=== PATIENT | female | born 1980 | race Caucasian/White ===

== ENCOUNTER → 2023-05-28 11:10 | Outpatient (REF) | payer BC, SELFPAY ==
[2023-05-28 11:54] LABS: % Basophils 0.6 % (0-2); % Eosinophils 2.1 % (0-6); % Immature Granulocytes 0.4 % (0-0.5); % Lymphocytes 13.6 % (20.5-51.1); % Monocytes 6.6 % (1.7-9.3); % Neutrophils 76.7 % (42.2-75.2); Absolute Basophils 0.1 10^3/uL (0-0.2); Absolute Eosinophils 0.2 10^3/uL (0-0.7); Absolute Lymphocytes 1.4 10^3/uL (1.2-3.4); Absolute Monocytes 0.7 10^3/uL (0.1-0.6); Hematocrit 38.4 % (37.0-47.0); Hemoglobin 12.8 g/dL (12.0-16.0); Mean Corp Hgb Conc. 33.3 g/dL (33.0-37.0); Mean Corpuscular Volume 87.1 fL (81.0-99.0); Mean Platelet Volume 10.5 fL (7.4-10.4); Nucleated Red Blood Cells % 0 %; Platelet Count 265 10^3/uL (130-400); Red Blood Cell Count 4.41 10^6/uL (4.20-5.40); Red Cell Dist. Width 13.1 % (11.5-14.5); White Blood Cell Count 10.5 10^3/uL (4.8-10.8)
[2023-05-28 12:32] LABS: ALT (SGPT) 19 U/L (0-35); AST (SGOT) 18 U/L (14-36); Albumin 4.1 g/dl (3.5-5.0); Alkaline Phosphatase 106 U/L (38-126); Blood Urea Nitrogen 12 mg/dl (7-17); Calcium 9.4 mg/dl (8.4-10.2); Carbon Dioxide 27 mmol/L (22-30); Chloride 100 mmol/L (98-107); Glucose 104 mg/dl (70-99); HDL Cholesterol 61 mg/dl; LDL Cholesterol, Calculated 118 mg/dl; Potassium 3.8 mmol/L (3.5-5.1); Sodium 137 mmol/L (135-145); Total Bilirubin 0.7 mg/dl (0.2-1.3); Total Cholesterol 198 mg/dl (50-199); Triglyceride 97 mg/dl (10-149); Very Low Density Lipoprotein 19 mg/dl (0-30); eGFR > 60.00
== END ==
LOC: REG 11:10
PROVIDERS: ATTENDING PHYSICIAN Internal Medicine Gastroenterology; FAMILY PHYSICIAN Internal Medicine
DX: D84.9 Immunodeficiency, unspecified (principal); Z51.81 Encounter for therapeutic drug level monitoring
CPT/HCPCS: 36415; 80053; 80061; 85025; 86140

== ENCOUNTER 2023-06-02 13:33 | Day surgery (SDC) | payer BC, SELFPAY ==
[2023-06-02] VITALS (10 sets, daily range): BP systolic 85–124; BP diastolic 46–86; BMI 28.1
[2023-06-02] MEDS: NORMOSOL-R 1000 IV (14:00)
[2023-06-02] MEDS: TYLENOL 1000 MG PO (14:11)
== END 2023-06-02 19:40 | disposition home or self-care (01) ==
LOC: SDS 13:33
PROVIDERS: ATTENDING PHYSICIAN Surgery
DX: K61.0 Anal abscess (principal); L02.215 Cutaneous abscess of perineum; B95.5 Unspecified streptococcus as the cause of diseases classified elsewhere
CPT/HCPCS: 46050; 44385; 87070; 87075; 87076; 87077; 87185; 87205; J1335

== ENCOUNTER → 2023-09-07 16:14 | Outpatient (REF) | payer BC, SELFPAY | LOC: RAD 16:14 | PROVIDERS: ATTENDING PHYSICIAN Nurse Practitioner Women's Health | DX: N93.9 Abnormal uterine and vaginal bleeding, unspecified (principal); Z12.31 Encounter for screening mammogram for malignant neoplasm of breast | CPT/HCPCS: 76830; 76856; 77063; 77067 ==

== ENCOUNTER → 2023-09-10 08:33 | Outpatient (REF) | payer BC, SELFPAY | LOC: WDC 08:33 | PROVIDERS: ATTENDING PHYSICIAN Nurse Practitioner Women's Health | DX: R92.8 Other abnormal and inconclusive findings on diagnostic imaging of breast (principal) | CPT/HCPCS: 76642 ==

== ENCOUNTER → 2024-02-04 11:10 | Emergency (ER) | payer BC, SELFPAY ==
[2024-02-04 11:15] VITALS: BP 129/82
--- NOTE | 2024-02-04 12:20 | ED.GENMED ---
History of Present Illness
General
Chief Complaint: Abdominal Symptoms
Source: patient
Exam Limitations: none
Time Seen by Provider: 02/04/24 11:58
Nursing documentation reviewed up to this point in time: agreed with
History of Present Illness
History of Present Illness:
43-year-old female past medical history of Crohn's ulcerative colitis presenting to the emergency department today with concerns of ongoing abdominal pain worsening over the past 2 weeks with some blood in her stool, currently has a J-pouch previous
colectomy. Does follow with pad but also sees colorectal surgery here. Works for the GI clinic here.
Past History
Past History
ED Past Medical History: Other (Ulcerative colitis)
ED Past Surgical History: Bowel resection and Cholecystectomy
Social History
Tobacco: Non-smoker
Alcohol: Occasional
Drug: None
Employment: Employed
Review of Systems
Review of Systems
Allergies reviewed?: Yes
All Other Systems: ROS reviewed and negative except as documented in HPI and ROS
Phy Exam
Physical Exam
Physical Exam:
GENERAL: Alert , in no apparent distress
EYE: pupils equal and reactive
NECK: Supple, no significant adenopathy.
ENT: o/p clr, mmm.
CARDIAC: Regular rate and rhythm .
LUNGS: Clear breath sounds bilaterally, no acute respiratory distress, no wheezes/rales/rhonchi
ABDOMEN: Vague diffuse abdominal pain
NEUROLOGICAL: Alert and oriented, no focal neuro deficits
SKIN: Warm and dry, skin intact.
MUSCULOSKELETAL: No edema, well perfused.
PSYCH: Normal and appropriate interaction.
Course
Orders/Labs/Results
Orders:
Orders
02/04/24 12:13
CT Abd/pel W Iv And Oral Contr Urgent
Comment:
Reason For Exam: diffuse abd pain, jpouch, colectomy
0.9% Sodium Chloride 1000 ml [Nss] 1,000 ml IV BOLUS
Dicyclomine HCl [Bentyl] 20 mg IM NOW STA
Iohexol [Omnipaque] See Protocol PO NOW STA
Ondansetron Injectable [Zofran] 4 mg IV NOW STA
Test Result ONCE
02/04/24 12:40
Complete Blood Count/With Diff Urgent
ESR [Erythrocyte Sed Rate] Urgent
02/04/24 12:41
Urinalysis Reflex To Culture Urgent
Date Specimen was Collected: 02/04/24
Time Specimen was Collected: 12:22
Urine Microscopic Reflex Cult Urgent
Stool Culture Urgent
TL Source: Feces/Stool
Specimen Description:
Date Specimen was Collected: 02/04/24
Time Specimen was Collected: 12:22
Urine Culture Urgent
TL Source: U
Specimen Description:
Date Specimen was Collected: 02/04/24
Time Specimen was Collected: 12:22
02/04/24 13:23
C-Reactive Protein Urgent
Comprehensive Metabolic Panel Urgent
HCG, Serum Qualitative Screen Urgent
Lipase Urgent
02/04/24 16:19
Add On - Microbiology Urgent
Tests Added?: Cdiff stool, calprotectin stool
Abnormal Lab Results
02/04/24 02/04/24 02/04/24
12:40 12:41 13:23
MCH 26.3 L pg
(27.0-31.0)
MCHC 31.9 L g/dL
(33.0-37.0)
MPV 11.1 H fL
(7.4-10.4)
Absolute Monos (auto) 0.7 H 10^3/uL
(0.1-0.6)
Lymphocytes % 18.4 L %
(20.5-51.1)
C-Reactive Protein 31.90 H mg/L
(0.0-10.00)
Ur Occult Blood Reflex Trace A
(Negative)
Urine RBC 3-6 A /HPF
(0-2)
Urine Bacteria (Reflex) Moderate A
(Negative)
02/04/24 12:40
02/04/24 13:23
Vital Signs
Initial and Last Documented VS:
Initial Vital Signs
Temp Pulse Resp BP Pulse Ox
97.8 F 90 18 129/82 98
02/04/24 11:15 02/04/24 11:15 02/04/24 11:15 02/04/24 11:15 02/04/24 11:15
Last Documented Vital Signs
Temp Pulse Resp BP Pulse Ox
97.8 F 17 18 129/82 98
02/04/24 11:15 02/04/24 12:22 02/04/24 11:15 02/04/24 11:15 02/04/24 11:15
MDM/Problems Addressed
MDM/Problems Addressed:
43-year-old female presenting to the emergency department today with concerns of abdominal pain and some intermittent bleeding to the J-pouch. Has history of colectomy due to ulcerative colitis and does have ongoing Crohn's disease. On arrival
vital signs are normal patient does have diffuse abdominal pain. Plan for CT scan for further assessment. Labs unremarkable normal hemoglobin and white count. CRP is elevated otherwise no acute abnormalities. CT scan without significant
intra-abdominal pathology. Some mild pelvic but otherwise no emergent findings. Case discussed with GI recommending stool studies and close GI outpatient follow-up. Return precautions given.
*Critical Care Note
Total Time (30-74mins, 75-104mins- exclusive of procedures): Not Applicable
ED Attending Note
-
Portions of this chart may have been created with voice recognition software.� Occasional wrong word or��sound alike� substitutions may have occurred due to the inherent limitations of voice recognition software.
Discharge Plan
Departure
Patient Disposition: Home (Routine Discharge)
Date of Disposition: 02/04/24
Time of Disposition: 16:25
Patient with high blood pressure during this ER visit?: No
Condition: Good
Covid-19: Not Applicable
Discharge Problem:
Abdominal pain
Instructions: Abdominal Pain
Prescriptions:
No Action
fexofenadine [Khloe] 60 mg Tablet
180 mg PO DAILY
omeprazole [Prilosec] 40 mg Capsule,Delayed Release(Dr/Ec)
40 mg PO DAILY
cholecalciferol (vitamin D3) [Vitamin D3] 10 mcg (400 unit) Capsule
10 mcg PO DAILY
Upabacitiniber
30 mg DAILY
oxycodone 5 mg tablet
5 mg PO Q6H PRN (Reason: Pain) Qty: 20 0RF
ciprofloxacin HCl 500 mg tablet
500 mg PO BID Qty: 14 0RF
metronidazole 500 mg tablet
500 mg PO TID Qty: 21 0RF
Referrals:
Codi Bright MD [Family Provider] -
Activity Restrictions/Additional Instructions:
You came to the emergency department today with concerns of abdominal discomfort. Here you have a reassuring assessment without signs of complication. Please feel closely with your GI doctor. Return to the emergency department for any worsening,
new or concerning symptoms.
Interventions
Interventions:
*Risk Screen - Suicide Last Done: 02/04/24 11:18
*General Assessment Last Done: 02/04/24 11:18
*Neglect/Abuse Screening Last Done: 02/04/24 11:18
ED- Fall Risk Assessment Last Done: 02/04/24 12:22
*ED COVID-19 Vaccine History Last Done: 02/04/24 11:18
TV-Kcjbba-Aklbnnpbou Assessment Last Done: 02/04/24 12:22
Discharge Date and Time
Print Language: [email or web address]
[2024-02-04] MEDS: OMNIPAQUE 50 ML PO (12:49)
[2024-02-04] MEDS: NSS 1000 IV (12:49)
[2024-02-04] MEDS: BENTYL 20 MG IM (12:50)
[2024-02-04] MEDS: ZOFRAN 4 MG IV (12:50)
[2024-02-04 13:06] LABS: Urine Albumin Negative (Neg - Trace); Urine Bilirubin Negative (Negative); Urine Character Clear (Clear); Urine Color Yellow; Urine Glucose Negative (Negative); Urine Ketone Negative (Negative); Urine Leukocyte Negative (Negative); Urine Nitrite Negative (Negative); Urine Occult Blood Trace (Negative); Urine Specific Gravity 1.015 (<1.030); Urine Urobilinogen Negative (Neg - 1+)
[2024-02-04 13:21] LABS: % Basophils 0.7 % (0-2); % Eosinophils 2.2 % (0-6); % Immature Granulocytes 0.4 % (0-0.5); % Lymphocytes 18.4 % (20.5-51.1); % Monocytes 7.6 % (1.7-9.3); % Neutrophils 70.7 % (42.2-75.2); Absolute Basophils 0.1 10^3/uL (0-0.2); Absolute Eosinophils 0.2 10^3/uL (0-0.7); Absolute Lymphocytes 1.7 10^3/uL (1.2-3.4); Absolute Monocytes 0.7 10^3/uL (0.1-0.6); Absolute Neutrophils 6.5 10^3/uL (1.4-6.5); Hematocrit 42.6 % (37.0-47.0); Hemoglobin 13.6 g/dL (12.0-16.0); Mean Corp Hgb Conc. 31.9 g/dL (33.0-37.0); Mean Corpuscular Hgb 26.3 pg (27.0-31.0); Mean Corpuscular Volume 82.2 fL (81.0-99.0); Mean Platelet Volume 11.1 fL (7.4-10.4); Nucleated Red Blood Cells % 0 %; Platelet Count 272 10^3/uL (130-400); Red Blood Cell Count 5.18 10^6/uL (4.20-5.40); Red Cell Dist. Width 14.3 % (11.5-14.5); White Blood Cell Count 9.2 10^3/uL (4.8-10.8)
[2024-02-04 13:41] LABS: Urine Squamous Cell >30 /LPF (Few)
[2024-02-04 13:42] LABS: Urine Bacteria Moderate (Negative)
[2024-02-04 14:05] LABS: HCG, Serum Qualitative Screen Negative
[2024-02-04 14:06] LABS: ALT (SGPT) 17 U/L (0-35); AST (SGOT) 20 U/L (14-36); Albumin 4.4 g/dl (3.5-5.0); Alkaline Phosphatase 91 U/L (38-126); Blood Urea Nitrogen 11 mg/dl (7-17); Calcium 9.5 mg/dl (8.4-10.2); Carbon Dioxide 23 mmol/L (22-30); Chloride 102 mmol/L (98-107); Glucose 91 mg/dl (70-99); Lipase 174 U/L (23-300); Sodium 137 mmol/L (135-145); Total Bilirubin 0.5 mg/dl (0.2-1.3); Total Protein 7.3 g/dl (6.3-8.2); eGFR > 60.00
[2024-02-04 14:52] LABS: Erythrocyte Sed Rate 16 mm/hour (0-20)
[2024-02-04 15:34] VITALS: BP 107/62
[2024-02-04 16:00] VITALS: BP 105/55
== END | disposition home or self-care (01) ==
LOC: EMR 11:10
PROVIDERS: Physician Assistant; EMERGENCY PHYSICIAN Emergency Medicine; FAMILY PHYSICIAN Internal Medicine
DX: R10.9 Unspecified abdominal pain (principal)
CPT/HCPCS: 99285; 96374; 96361; 96372; 74177; 80053; 81003; 81015; 83690; 83993; 84703; 85025; 85652; 86140; 87045; 87046; 87086; 87324; 87427; 87449; Q9967

== ENCOUNTER 2024-03-13 14:27 | Outpatient (RCR) | payer BC, SELFPAY ==
[2024-03-03 11:00] VITALS: BP 111/71
[2024-03-03] MEDS: INJECTAFER 265 MG IV (11:08)
[2024-03-03 11:25] LABS: % Basophils 0.5 % (0-2); % Eosinophils 2.3 % (0-6); % Immature Granulocytes 0.4 % (0-0.5); % Lymphocytes 18.2 % (20.5-51.1); % Monocytes 7.5 % (1.7-9.3); % Neutrophils 71.1 % (42.2-75.2); Absolute Eosinophils 0.2 10^3/uL (0-0.7); Absolute Lymphocytes 1.4 10^3/uL (1.2-3.4); Absolute Monocytes 0.6 10^3/uL (0.1-0.6); Absolute Neutrophils 5.6 10^3/uL (1.4-6.5); Hematocrit 39.3 % (37.0-47.0); Hemoglobin 12.8 g/dL (12.0-16.0); Mean Corp Hgb Conc. 32.6 g/dL (33.0-37.0); Mean Corpuscular Hgb 26.6 pg (27.0-31.0); Mean Corpuscular Volume 81.5 fL (81.0-99.0); Mean Platelet Volume 10.4 fL (7.4-10.4); Nucleated Red Blood Cells % 0 %; Platelet Count 228 10^3/uL (130-400); Red Blood Cell Count 4.82 10^6/uL (4.20-5.40); Red Cell Dist. Width 15.7 % (11.5-14.5); White Blood Cell Count 7.9 10^3/uL (4.8-10.8)
[2024-03-03 11:43] LABS: Iron 48 ug/dl (37-170)
[2024-03-03 11:45] VITALS: BP 102/64
[2024-03-03 11:52] LABS: Percent Saturation 10 % (20-50); Total Iron Binding Capacity 479 ug/dl (265-497)
[2024-03-03 12:05] LABS: Vitamin D, 25-OH*** > 126 ng/mL (30-80)
[2024-03-03 12:23] LABS: Ferritin 9.6 ng/ml (6.24-137)
[2024-03-13] MEDS: INJECTAFER 265 MG IV (14:54)
[2024-03-13 15:03] VITALS: BP 106/67
[2024-03-13 15:04] LABS: % Basophils 0.2 % (0-2); % Eosinophils 1.6 % (0-6); % Immature Granulocytes 0.5 % (0-0.5); % Lymphocytes 21.1 % (20.5-51.1); % Monocytes 8.1 % (1.7-9.3); % Neutrophils 68.5 % (42.2-75.2); Absolute Eosinophils 0.1 10^3/uL (0-0.7); Absolute Lymphocytes 1.7 10^3/uL (1.2-3.4); Absolute Monocytes 0.7 10^3/uL (0.1-0.6); Absolute Neutrophils 5.7 10^3/uL (1.4-6.5); Hemoglobin 12.9 g/dL (12.0-16.0); Mean Corp Hgb Conc. 33.1 g/dL (33.0-37.0); Mean Corpuscular Hgb 27.4 pg (27.0-31.0); Mean Platelet Volume 9.9 fL (7.4-10.4); Platelet Count 267 10^3/uL (130-400); Red Cell Dist. Width 15.8 % (11.5-14.5); White Blood Cell Count 8.3 10^3/uL (4.8-10.8)
[2024-03-13 15:34] LABS: Phosphorus 2.1 mg/dl (2.5-4.5)
[2024-03-13 16:00] VITALS: BP 109/67
== END 2024-03-14 08:59 | disposition home or self-care (01) ==
LOC: OID 14:27
PROVIDERS: ATTENDING PHYSICIAN Internal Medicine Hematology & Oncology; FAMILY PHYSICIAN Internal Medicine
DX: E61.1 Iron deficiency (principal); K50.90 Crohn's disease, unspecified, without complications; R53.83 Other fatigue
CPT/HCPCS: 82306; 82728; 83540; 83550; 84100; 85025; 96365; J1439

== ENCOUNTER 2024-05-17 06:11 | Inpatient (IN) | payer BC, SELFPAY ==
[2024-05-05 06:58] VITALS: BMI 34.4
[2024-05-05 08:12] LABS: Hematocrit 43.9 % (37.0-47.0); Hemoglobin 14.7 g/dL (12.0-16.0); Mean Corp Hgb Conc. 33.5 g/dL (33.0-37.0); Mean Corpuscular Hgb 29.6 pg (27.0-31.0); Mean Corpuscular Volume 88.3 fL (81.0-99.0); Mean Platelet Volume 10.3 fL (7.4-10.4); Platelet Count 242 10^3/uL (130-400); Red Blood Cell Count 4.97 10^6/uL (4.20-5.40); Red Cell Dist. Width 15.5 % (11.5-14.5); White Blood Cell Count 7.6 10^3/uL (4.8-10.8)
[2024-05-05 08:15] LABS: ALT (SGPT) 25 U/L (0-35); AST (SGOT) 22 U/L (14-36); Albumin 4.8 g/dl (3.5-5.0); Alkaline Phosphatase 90 U/L (38-126); Blood Urea Nitrogen 12 mg/dl (7-17); Calcium 9.3 mg/dl (8.4-10.2); Carbon Dioxide 28 mmol/L (22-30); Chloride 99 mmol/L (98-107); Estimated Creatinine Clearance > 125 ml/min; Glucose 98 mg/dl (70-99); Potassium 4.1 mmol/L (3.5-5.1); Sodium 137 mmol/L (135-145); eGFR > 60.00
[2024-05-05 08:17] LABS: INR 0.95; PT 12.9 Sec (11.4-14.6)
[2024-05-05 08:19] LABS: APTT 29.6 Sec (23.4-35.0)
[2024-05-05 12:45] LABS: Glycohemoglobin (HgbA1c) 5.3 % (4.0-5.6)
[2024-05-17] VITALS (18 sets, daily range): BP systolic 30–115; BP diastolic 54–72; BMI 34.4
[2024-05-17] MEDS: HEPARIN 5000 UNITS SC (06:48)
[2024-05-17] MEDS: TYLENOL 1000 MG PO (06:48)
[2024-05-17] MEDS: ENTEREG 12 MG PO (06:48)
[2024-05-17] MEDS: NORMOSOL-R/PLASMALYTE-A 1000 IV ×2 (06:49→16:54)
[2024-05-17] MEDS: TRANSDERM-SCOP 1 PATCH TRANSDERM (07:06)
--- NOTE | 2024-05-17 13:26 | W.IMMPOSTOP ---
Surgical Immed Post Op Note
-
Primary Surgeon: Yasir Torres MD
Assistants: CARINA Villagomez, Casimiro Mojica MD, PGY1 and RAFFAELE Salguero
Pre-op Diagnosis: J-pouch Crohn's disease
Post-op Diagnosis: Same
Procedure Performed: Cystoscopy with bilateral ureteral catheters/ICG by Dr. Luevano
Robotic J-pouch excision with permanent ileostomy
Anesthesia Type: GET
Specimen / Cultures: J-pouch and anus
Estimated Blood Loss: 100cc
Complications: None
Operative Findings: Chronic scarring of the J-pouch
Right ureteral stent removed intact
#19 Colt drain in the pelvis
Patient's family updated in the waiting room
[2024-05-17] MEDS: COMPAZINE 5 MG IV (14:48)
[2024-05-17] MEDS: DILAUDID 0.25 MG IV (14:59)
[2024-05-17] MEDS: TORADOL 15 MG IV ×2 (15:00→20:42)
--- NOTE | 2024-05-17 16:21 | PTCARENOTE ---
Pt arrived 2 south from PACU s/p robotic J pouch removal, ileostomy creation. Pt AAOx3, drowsy but arousal to verbal, Lemus in place draining brown/yellow colored urine, stent in place, L side SARAI drain in place, perianal pad with small amount of
drainage, 3 lap sites C/D/I RUY, on 2L NC satting 96%. Pt oriented to call mora and room, bed locked and in lowest position, call mora within reach.
[2024-05-17] MEDS: TYLENOL PO (16:51)
[2024-05-17 17:42] LABS: Glucose - Point of Care 122 mg/dl (70-99)
[2024-05-17] MEDS: TYLENOL 650 MG PO (20:41)
[2024-05-18] MEDS: NORMOSOL-R/PLASMALYTE-A 1000 IV ×3 (01:54→19:12)
[2024-05-18] MEDS: TORADOL 15 MG IV ×4 (01:55→19:13)
[2024-05-18] MEDS: TYLENOL 650 MG PO ×5 (01:55→19:12)
[2024-05-18 03:10] VITALS: BP 117/58
[2024-05-18] MEDS: TYLENOL PO (03:54)
[2024-05-18 06:00] VITALS: BMI 34.4
[2024-05-18 06:47] LABS: % Basophils 0.4 % (0-2); % Eosinophils 0.9 % (0-6); % Immature Granulocytes 0.5 % (0-0.5); % Lymphocytes 6.7 % (20.5-51.1); % Monocytes 10.9 % (1.7-9.3); % Neutrophils 80.6 % (42.2-75.2); Absolute Basophils 0.1 10^3/uL (0-0.2); Absolute Eosinophils 0.1 10^3/uL (0-0.7); Absolute Immature Granulocytes 0.1 10^3/uL (0-0.05); Absolute Lymphocytes 0.8 10^3/uL (1.2-3.4); Absolute Monocytes 1.4 10^3/uL (0.1-0.6); Absolute Neutrophils 10.2 10^3/uL (1.4-6.5); Hematocrit 40.3 % (37.0-47.0); Hemoglobin 13.3 g/dL (12.0-16.0); Mean Corpuscular Hgb 29.6 pg (27.0-31.0); Mean Corpuscular Volume 89.8 fL (81.0-99.0); Mean Platelet Volume 10.4 fL (7.4-10.4); Nucleated Red Blood Cells % 0 %; Platelet Count 207 10^3/uL (130-400); Red Blood Cell Count 4.49 10^6/uL (4.20-5.40); Red Cell Dist. Width 14.7 % (11.5-14.5); White Blood Cell Count 12.6 10^3/uL (4.8-10.8)
[2024-05-18 06:59] LABS: Blood Urea Nitrogen 9 mg/dl (7-17); Calcium 7.7 mg/dl (8.4-10.2); Carbon Dioxide 23 mmol/L (22-30); Chloride 105 mmol/L (98-107); Estimated Creatinine Clearance > 125 ml/min; Glucose 103 mg/dl (70-99); Potassium 3.8 mmol/L (3.5-5.1); Sodium 134 mmol/L (135-145); eGFR > 60.00
[2024-05-18 07:47] VITALS: BP 98/58
[2024-05-18] MEDS: PROTONIX 40 MG PO (08:18)
[2024-05-18] MEDS: ENTEREG 12 MG PO ×2 (08:19→19:13)
--- NOTE | 2024-05-18 11:02 | CM ---
Reviewed the chart notes and spoke with the patient at the bedside. The patient resides with her parents in a two story home with approximately five steps to enter. The patient reports no DME or SNF in the past, but has had [facility] in past.
The patient confirmed her pharmacy of choice is the [facility]. CM continues to be available to patient/family and is monitoring medical plan for needs at discharge.
Plan: Discharge to home when medically stable. No needs anticipated at this time.
[2024-05-18 12:29] VITALS: BP 104/61
--- NOTE | 2024-05-18 13:05 | W.PN.CRS1 ---
Today's Communication / Plan
-
Clears
DC Lemus
Lovenox
Wound care
Assessment/Plan
-
POD#1 Robotic J-pouch excision with permanent ileostomy
WBC: 12.6, Hgb 13.3, vitals normal
-Advance diet to clear liquids
-Discontinue Lemus. Stent # 2 removed at bedside.
-Lovenox started for DVT prophylaxis. Teds and SCDs in place.
-Maintain SARAI drain until discharge
-Sitz bath's as needed
-Pain control: Tylenol and Toradol standing, Dilaudid as needed, added oxycodone as needed
-Wound consult for ileostomy teaching
-OR pathology pending
-Out of bed as tolerated
Subjective Data
Procedure
05/17- Cystoscopy with bilateral ureteral catheters/ICG by Dr. Luevano, robotic J-pouch excision with permanent ileostomy
Subjective Data
Date of Service: May 18, 2024
Patient states she is feeling well. She is not that hungry. She had some nausea yesterday but this is resolved. She denies any vomiting. Her pain is controlled. She has some function in her ileostomy.
Objective Data
-
Vital Signs
Temp Pulse Resp BP Pulse Ox
98.0 F 64 16 104/61 100
05/18/24 12:29 05/18/24 12:29 05/18/24 12:29 05/18/24 12:29 05/18/24 12:29
Intake & Output
05/17/24 05/18/24 05/19/24
06:59 06:59 06:59
Intake Total 1740 / 1740
Output Total 1335 / 1335
Balance 405 / 405
Intake:
Oral fluids 240 / 240
IV fluids (Total) 1500 / 1500
Normosol 300 / 300
Output:
Drain Output (Total) 110 / 110
Left Abdomen Michael-Mcnally 110 / 110
Urine, Lemus 1225 / 1225
Lab Results
05/18/24 05:48
05/18/24 05:48
Physical Exam
-
General: No Acute Distress and AOx3
Abdomen: Soft, Non Distended, Non Tender and Other (Ileostomy warm and pink with liquid stool output)
Skin: Warm and Dry
[2024-05-18 15:51] VITALS: BP 110/57
[2024-05-18] MEDS: LOVENOX 40 MG SC (17:16)
[2024-05-18 23:25] VITALS: BP 94/48
[2024-05-19] MEDS: TYLENOL PO (01:04)
[2024-05-19] MEDS: TYLENOL 650 MG PO ×5 (02:36→21:51)
[2024-05-19] MEDS: TORADOL 15 MG IV ×4 (02:36→21:51)
[2024-05-19 02:45] VITALS: BP 96/45
[2024-05-19 06:00] VITALS: BMI 34.8
[2024-05-19 08:10] VITALS: BP 92/56
[2024-05-19] MEDS: ENTEREG 12 MG PO ×2 (08:36→20:16)
[2024-05-19] MEDS: PROTONIX 40 MG PO (08:36)
--- NOTE | 2024-05-19 10:17 | WOUNDNOTE ---
WOC RN NOTE: Reviewed chart and met with patient. Patient denies need for ostomy teaching for new ileostomy as she has had ostomy in the past. Stoma is pink and budded. Patient agreeable to secure start kit order to be send to home. Patient given 2
weeks of ostomy supplies and will have VN. Patient understands she can reach out to WOC RN's for any issues or concerns. Plan is for discharge tomorrow.
--- NOTE | 2024-05-19 10:38 | W.PN.CRS1 ---
Today's Communication / Plan
-
full liquids
Assessment/Plan
-
POD#2 Robotic J-pouch excision with permanent ileostomy
no labs, vitals normal
-Advance diet to full liquids. D/C IVFs when tolerating po.
-Voiding post wang removal
-Lovenox, TEDS/SCDS in place for DVT prophylaxis.
-Maintain SARAI drain until discharge
-Sitz bath's as needed
-Pain control: Tylenol and Toradol standing, Dilaudid as needed, added oxycodone as needed
-Wound consult for ileostomy teaching
-OR pathology pending
-Out of bed as tolerated
Subjective Data
Procedure
05/17- Cystoscopy with bilateral ureteral catheters/ICG by Dr. Luevano, robotic J-pouch excision with permanent ileostomy
Subjective Data
Date of Service: May 19, 2024
Patient states she feels 'okay'. She feels some mild rectal pain. She denies nausea or vomiting. She tolerated clears.
Objective Data
-
Vital Signs
Temp Pulse Resp BP Pulse Ox
98.4 F 68 18 92/56 97
05/19/24 08:10 05/19/24 08:10 05/19/24 08:10 05/19/24 08:10 05/19/24 08:10
Intake & Output
05/18/24 05/19/24 05/20/24
06:59 06:59 06:59
Intake Total 1740 / 1740 4080 / 4080
Output Total 1335 / 1335 1959 / 1959
Balance 405 / 405 2119 / 2120
Intake:
Oral fluids 240 / 240 1680 / 1680
IV fluids (Total) 1500 / 1500 2400 / 2400
Normosol 300 / 300
Output:
Liquid stool amount 300 / 300
Ileostomy 300 / 300
Drain Output (Total) 110 / 110 110 / 110
Left Abdomen Michael-Mcnally 110 / 110 110 / 110
Urine, Wang 1225 / 1225 450 / 450
Urine, Voided 1100 / 1100
Other:
Number of approximated MODERATE 3
amounts of urine
Lab Results
05/18/24 05:48
05/18/24 05:48
Physical Exam
-
General: No Acute Distress and AOx3
Abdomen: Soft, Non Distended, Non Tender and Other (ileostomy warm and pink with function. SARAI serosanginous. )
Skin: Warm and Dry
[2024-05-19 15:33] VITALS: BP 95/62
[2024-05-19] MEDS: LOVENOX 40 MG SC (18:13)
[2024-05-19 23:44] VITALS: BP 92/44
[2024-05-20] MEDS: TYLENOL PO (00:24)
[2024-05-20] MEDS: TYLENOL 650 MG PO ×2 (02:57→08:46)
[2024-05-20] MEDS: TORADOL 15 MG IV (02:57)
[2024-05-20 06:00] VITALS: BMI 34.4
[2024-05-20 07:35] VITALS: BP 98/56
[2024-05-20] MEDS: TORADOL IV ×2 (08:46→09:06)
[2024-05-20] MEDS: PROTONIX 40 MG PO (08:46)
[2024-05-20] MEDS: ENTEREG 12 MG PO (08:46)
--- NOTE | 2024-05-20 11:58 | W.PN.CRS1 ---
Today's Communication / Plan
-
Dispo planning
Assessment/Plan
-
44 yo female with a h/o Crohn's POD#3 Robotic J-pouch excision with permanent ileostomy
AFVSS
Tolerating diet with good outputs from stoma
Comfortable with stoma care
Drain is out
-LRD
-Lovenox, TEDS/SCDS in place for DVT prophylaxis.
-Sitz bath's as needed
-Pain control: Tylenol and Toradol standing, Dilaudid as needed, added oxycodone as needed
-Wound consult for ileostomy teaching, VNA arranged
-OR pathology pending
-Out of bed as tolerated
discharge to home
Subjective Data
Procedure
05/17- Cystoscopy with bilateral ureteral catheters/ICG by Dr. Luevano, robotic J-pouch excision with permanent ileostomy
Subjective Data
Date of Service: May 20, 2024
Patient seen and examined at bedside with Dr Torres. Everette n/v. Tolerating diet. Passing stools/flatus via stoma. Pain is minimal.
Objective Data
-
Vital Signs
Temp Pulse Resp BP Pulse Ox
98.0 F 66 16 98/56 98
05/20/24 07:35 05/20/24 07:35 05/20/24 07:35 05/20/24 07:35 05/20/24 07:35
Intake & Output
05/19/24 05/20/24 05/21/24
06:59 06:59 06:59
Intake Total 4080 / 4080 1200 / 1200
Output Total 1959 / 1959 1350 / 1350
Balance 2119 / 2119 -150 / -150
Intake:
Oral fluids 1680 / 1680 1200 / 1200
IV fluids (Total) 2400 / 2400
Output:
Liquid stool amount 300 / 300 1350 / 1350
Ileostomy 300 / 300 1350 / 1350
Drain Output (Total) 110 / 110
Left Abdomen Michael-Mcnally 110 / 110
Urine, Lemus 450 / 450
Urine, Voided 1100 / 1100
Other:
Number of approximated MODERATE 3 3
amounts of urine
Lab Results
05/18/24 05:48
05/18/24 05:48
Physical Exam
-
General: No Acute Distress and AOx3
Abdomen: Soft, Non Distended, Non Tender and Other (ileostomy warm and pink with function)
Skin: Warm and Dry
Incision: Clear, Dry, Intact and Other (Prior drain site, intact, no drainage)
--- NOTE | 2024-05-20 12:13 | CM ---
Pt for discharge today
[facility] to follow
Has ride home
Plan - home with [facility]
f - [phone]
[2024-05-20 13:30] VITALS: BP 107/65
--- NOTE | 2024-05-20 14:21 | W.DCSUMMARY ---
Discharge Summary
Discharge Data
Date of Admission: 05/17/24
Date of Discharge: 05/20/24
-
Pending Results: No
Hospital Course
Ms Spann is a 44 yo female with a history of Crohn's with prior J-pouch who presented for robotic j-pouch excision and creation of end ileostomy. She tolerated the procedure well and diet was able to be advanced and well tolerated post
operatively. She was evaluated by the stoma nurse with ostomy supplies provided and VNA arranged for her return to home. A SARAI drain was placed intraoperatively and removed prior to discharge. She was discharged to home for outpatient follow up in
the coming weeks for perianal suture removal and surgical follow up. Pathology of pouch and anus pending at time of discharge.
Discharge Plan
-
Patient Disposition: Home (Routine Discharge)
Discharge Diagnosis/Procedures: Robotic J-pouch excision with permanent ileostomy
Condition: Good
Diet: Low Residue
Activity: No strenuous activity
Additional Activity: No lifting over 10lbs (gallon of milk)
Driving Restrictions: No driving for 1 week
Bathing Restrictions: OK to Shower
Other Services: VN
Wound Care: The drain site will heal on it's own in 3 to 5 days. Okay to leave open to air once sealed.
Activity Restrictions/Additional Instructions:
Ostomy supplies have been provided to you by the wound care team, please call the wound center if more supplies are needed.
Visiting nurses through [facility] have been arranged and can assist you with obtaining supplies
Sutures to be removed as an outpatient in 2 weeks. Ok to shower and rinse area gently with soap and water. Ok for sitz baths as needed for irritation.
Instructions: Low-fiber diet
Referrals:
Vance Torres MD [Active] - in two weeks
Richar Bravo DO [Family Provider] -
Prescriptions:
New
acetaminophen [acetaminophen] 325 mg tablet
650 mg PO Q4HPRN PRN (Reason: mild pain) Qty: 1 0RF
ibuprofen 200 mg tablet
400 - 600 mg PO Q6HPRN PRN (Reason: moderate pain) Qty: 1 0RF
oxycodone 5 mg tablet
5 mg PO Q4HPRN PRN (Reason: breakthrough/severe pain) Qty: 15 0RF
Continued
fexofenadine 60 mg Tablet
180 mg PO DAILY PRN (Reason: allergies)
omeprazole 40 mg Capsule,Delayed Release(Dr/Ec)
40 mg PO DAILY
cholecalciferol (vitamin D3) [Vitamin D3] 10 mcg (400 unit) Capsule
10 mcg PO DAILY
cm-sn-blqo-FA-Ca carb-vit K 18 mg iron-400 mcg-500 mg Tablet
1 tab PO DAILY
magnesium 200 mg Tablet
200 mg PO HS
Discontinued
metronidazole 500 mg Tablet
500 mg PO DIRECTED
Patient Comments:
2pm, 3pm, 10pm day before
neomycin 500 mg Tablet
500 mg PO DIRECTED
Patient Comments:
2pm, 3pm, 10pm day before
Discharge Orders:
Discharge Patient (As Directed); Ordered 05/20/24
Ordered By: Micaela Gray
Discharge Date and Time
Discharge Date/Time: 05/20/24 13:46
Print Language: YORUBA
== END 2024-05-20 13:46 | disposition home health service (06) | DRG 330 ==
LOC: 2 SOUTH 06:11
PROVIDERS: ADMITTING PHYSICIAN Surgery; FAMILY PHYSICIAN Family Medicine
PROC: 0DBQ4ZZ Excision of Anus, Percutaneous Endoscopic Approach (ICD-10-PCS; 2024-05-17)
PROC: 8E0W4CZ Robotic Assisted Procedure of Trunk Region, Percutaneous Endoscopic Approach (ICD-10-PCS; 2024-05-17)
PROC: 0D1B4Z4 Bypass Ileum to Cutaneous, Percutaneous Endoscopic Approach (ICD-10-PCS; 2024-05-17)
PROC: 0DBP4ZZ Excision of Rectum, Percutaneous Endoscopic Approach (ICD-10-PCS; 2024-05-17)
DX: K50.90 Crohn's disease, unspecified, without complications (principal); K91.850 Pouchitis; N83.202 Unspecified ovarian cyst, left side; N83.201 Unspecified ovarian cyst, right side; N73.6 Female pelvic peritoneal adhesions (postinfective); Y83.8 Other surgical procedures as the cause of abnormal reaction of the patient, or of later complication, without mention of misadventure at the time of the procedure
CPT/HCPCS: 88307; 36415; 80048; 80053; 82962; 83036; 85025; 85027; 85610; 85730; 86850; 86900; 86901; A4300; J1335

== ENCOUNTER → 2024-06-09 13:20 | Outpatient (REF) | payer BC, SELFPAY | LOC: HWRAD 13:20 | PROVIDERS: ATTENDING PHYSICIAN Nurse Practitioner Women's Health; FAMILY PHYSICIAN Internal Medicine | DX: E28.2 Polycystic ovarian syndrome (principal) | CPT/HCPCS: 76830; 76856 ==

== ENCOUNTER → 2024-07-10 18:18 | Outpatient (REF) | payer BC, SELFPAY | LOC: PAVMRI 18:18 | PROVIDERS: ATTENDING PHYSICIAN Nurse Practitioner Women's Health; FAMILY PHYSICIAN Nurse Practitioner Family | DX: N83.8 Other noninflammatory disorders of ovary, fallopian tube and broad ligament (principal) | CPT/HCPCS: 72197; A9575 ==

== ENCOUNTER → 2024-08-01 07:23 | Outpatient (REF) | payer BC, SELFPAY ==
[2024-08-01 08:37] LABS: % Basophils 0.6 % (0-2); % Immature Granulocytes 0.4 % (0-0.5); % Lymphocytes 19.7 % (20.5-51.1); % Monocytes 7.1 % (1.7-9.3); % Neutrophils 70.2 % (42.2-75.2); Absolute Basophils 0.1 10^3/uL (0-0.2); Absolute Eosinophils 0.2 10^3/uL (0-0.7); Absolute Lymphocytes 1.6 10^3/uL (1.2-3.4); Absolute Monocytes 0.6 10^3/uL (0.1-0.6); Absolute Neutrophils 5.7 10^3/uL (1.4-6.5); Hematocrit 43.4 % (37.0-47.0); Hemoglobin 14.4 g/dL (12.0-16.0); Mean Corp Hgb Conc. 33.2 g/dL (33.0-37.0); Mean Corpuscular Hgb 30.6 pg (27.0-31.0); Mean Corpuscular Volume 92.3 fL (81.0-99.0); Mean Platelet Volume 11.2 fL (7.4-10.4); Nucleated Red Blood Cells % 0 %; Platelet Count 231 10^3/uL (130-400); Red Cell Dist. Width 12.4 % (11.5-14.5); White Blood Cell Count 8.2 10^3/uL (4.8-10.8)
[2024-08-01 09:08] LABS: ALT (SGPT) 19 U/L (0-35); AST (SGOT) 16 U/L (14-36); Albumin 4.3 g/dl (3.5-5.0); Alkaline Phosphatase 69 U/L (38-126); Blood Urea Nitrogen 14 mg/dl (7-17); Calcium 9.5 mg/dl (8.4-10.2); Carbon Dioxide 26 mmol/L (22-30); Chloride 109 mmol/L (98-107); Glucose 101 mg/dl (70-99); LDH 159 U/L (120-246); Potassium 4.5 mmol/L (3.5-5.1); Sodium 141 mmol/L (135-145); Total Bilirubin 0.6 mg/dl (0.2-1.3); Total Protein 7.1 g/dl (6.3-8.2); eGFR > 60.00
[2024-08-01 09:22] LABS: Beta HCG Quantitative < 2.39 mIU/ml; FSH 3.8 mIU/ml
[2024-08-01 09:36] LABS: CEA 1.01 ng/ml
[2024-08-01 10:42] LABS: CA 125 12.5 U/mL (0-35)
[2024-08-01 10:46] LABS: AFP Male/Tumor Marker 2.12 ng/ml
== END ==
LOC: REG 07:23
PROVIDERS: ATTENDING PHYSICIAN Obstetrics & Gynecology Gynecologic Oncology; FAMILY PHYSICIAN Internal Medicine
DX: E61.1 Iron deficiency (principal); R19.03 Right lower quadrant abdominal swelling, mass and lump; Z93.2 Ileostomy status
CPT/HCPCS: 36415; 80053; 82105; 82378; 83001; 83615; 84702; 85025; 86304

== ENCOUNTER → 2024-09-20 11:05 | Outpatient (REF) | payer BC, SELFPAY | LOC: MRI 3T 11:05 | PROVIDERS: ATTENDING PHYSICIAN Obstetrics & Gynecology Gynecologic Oncology; FAMILY PHYSICIAN Internal Medicine | DX: E61.1 Iron deficiency (principal); R19.03 Right lower quadrant abdominal swelling, mass and lump; Z93.2 Ileostomy status | CPT/HCPCS: 72197; A9575 ==

== ENCOUNTER 2025-02-08 07:31 | Emergency (ER) | payer BC, SELFPAY ==
[2025-02-08 07:41] VITALS: BP 115/74
[2025-02-08 07:52] VITALS: BMI 32.5
[2025-02-08 08:09] VITALS: BP 106/61
[2025-02-08 08:11] VITALS: BP 106/61
[2025-02-08 08:13] LABS: Hematocrit 42.5 % (37.0-47.0); Hemoglobin 14.3 g/dL (12.0-16.0); Mean Corp Hgb Conc. 33.6 g/dL (33.0-37.0); Mean Corpuscular Volume 89.3 fL (81.0-99.0); Nucleated Red Blood Cells % 0 %; Platelet Count 222 10^3/uL (130-400); Red Cell Dist. Width 12.3 % (11.5-14.5)
[2025-02-08 08:17] LABS: Urine Character Clear (Clear)
--- NOTE | 2025-02-08 08:18 | ED.GENMED ---
History of Present Illness
<Whitney Mcclendon PA-C - Last Filed: 02/08/25 13:01>
General
Chief Complaint: Abdominal Pain
Source: patient
Exam Limitations: none
Time Seen by Provider: 02/08/25 08:07
History of Present Illness
History of Present Illness:
44yoF with a history of Crohn's disease currently in remission, lupus not currently on medication, and PCOS presenting for evaluation of abdominal pain. Patient reports waking up in the middle of the night around 2:30 AM with abdominal pain. Pain
is primarily located in the upper abdomen. She also is experiencing nausea and has vomited about 5x. She reports decreased output from her ileostomy since her symptoms began. She typically has a large amount of liquid output but is now only
passing gas. Patient is concerned that she may have a bowel obstruction. She denies any fevers, chest pain, shortness of breath, hematemesis, urinary symptoms. Patient underwent robotic J-pouch excision with permanent ileostomy in April of
this year with Dr. Torres.
Past History
<Whitney Mcclendon PA-C - Last Filed: 02/08/25 13:01>
Past History
ED Past Medical History: Other (Ulcerative colitis)
ED Past Surgical History: Bowel resection and Cholecystectomy
Social History
Tobacco: Non-smoker
Alcohol: Occasional
Drug: None
Employment: Employed
Phy Exam
<Whitney Mcclendon PA-C - Last Filed: 02/08/25 13:01>
General Physical Exam
General Presentation: well appearing and no apparent distress
General Skin: warm and dry
General Habitus: normal
General Mental: alert
ENT Exam
ENT Exam: normocephalic
Cardiovascular Exam
Cardiovascular Exam: regular rate/rhythm
Pulmonary Exam
Pulmonary Exam: lungs clear, no respiratory distress, no rales, no crackles, no rhonchi and no wheezing
Gastrointestinal Exam
Gastrointestinal Exam: normal bowel sounds, soft, non distended, tender and other (+Tenderness to epigastric, RUQ, RLQ, and suprapubic regions. Abdomen soft, non-distended. Normoactive bowel sounds. No rebound or guarding.)
External Findings: ileostomy (no output in bag)
Neurological Exam
Neurological Exam: alert
Jerome Coma Scale
Eye Opening: Spontaneous
Verbal Response: Oriented
Motor Response: Obeys Commands
GCS Total Score: 15
Skin Exam
Skin Exam: normal color and warm/dry
Psychiatric Exam
Psychiatric Exam: normal mood/affect
Course
Bernardalt;Whitney Mcclendon PA-C - Last Filed: 02/08/25 13:01>
Orders/Labs/Results
Orders:
Orders
02/08/25 08:01
Test Result ONCE
02/08/25 08:02
CMP [Comprehensive Metabolic Panel] Urgent
Complete Blood Count/With Diff Urgent
HCG, Serum Qualitative Screen Urgent
Lipase Urgent
02/08/25 08:03
Urinalysis Reflex To Culture Urgent
Date Specimen was Collected: 02/08/25
Time Specimen was Collected: 08:02
Urine Microscopic Reflex Cult Urgent
02/08/25 08:17
CT Abd/pel W Iv And Oral Contr Urgent
Comment:
Reason For Exam: abd pain, vomiting, ileostomy status
0.9% Sodium Chloride 1000 ml [Nss] 1,000 ml IV BOLUS
Iohexol [Omnipaque] See Protocol PO NOW STA
Ondansetron Injectable [Zofran] 4 mg IV NOW STA
02/08/25 10:08
Acetaminophen [Tylenol] 1,000 mg PO NOW STA
Abnormal Lab Results
02/08/25 02/08/25
08:02 08:03
MPV 10.6 H fL
(7.4-10.4)
Absolute Neuts (auto) 8.4 H 10^3/uL
(1.4-6.5)
Absolute Monos (auto) 0.7 H 10^3/uL
(0.1-0.6)
Neutrophils % 79.4 H %
(42.2-75.2)
Lymphocytes % 12.1 L %
(20.5-51.1)
Glucose 104 H mg/dl
(70-99)
Ur Occult Blood Reflex 1+ A
(Negative)
Urine Bacteria (Reflex) Few A
(Negative)
Urine Albumin (Reflex) 1+ A
(Neg - Trace)
02/08/25 08:02
02/08/25 08:02
Vital Signs
Initial and Last Documented VS:
Initial Vital Signs
Temp Pulse Resp BP Pulse Ox
98.2 F 78 15 115/74 98
02/08/25 07:41 02/08/25 07:41 02/08/25 07:41 02/08/25 07:41 02/08/25 07:41
Last Documented Vital Signs
Temp Pulse Resp BP Pulse Ox
98.2 F 66 18 98/59 97
02/08/25 07:41 02/08/25 12:55 02/08/25 12:55 02/08/25 12:55 02/08/25 12:55
<Amol Coello, DO - Last Filed: 02/08/25 08:36>
Orders/Labs/Results
Orders:
Orders
02/08/25 08:01
Test Result ONCE
02/08/25 08:02
CMP [Comprehensive Metabolic Panel] Urgent
Complete Blood Count/With Diff Urgent
HCG, Serum Qualitative Screen Urgent
Lipase Urgent
02/08/25 08:03
Urinalysis Reflex To Culture Urgent
Date Specimen was Collected: 02/08/25
Time Specimen was Collected: 08:02
Urine Microscopic Reflex Cult Urgent
02/08/25 08:17
CT Abd/pel W Iv And Oral Contr Urgent
Comment:
Reason For Exam: abd pain, vomiting, ileostomy status
0.9% Sodium Chloride 1000 ml [Nss] 1,000 ml IV BOLUS
Iohexol [Omnipaque] See Protocol PO NOW STA
Ondansetron Injectable [Zofran] 4 mg IV NOW STA
02/08/25 10:08
Acetaminophen [Tylenol] 1,000 mg PO NOW STA
Abnormal Lab Results
02/08/25 02/08/25
08:02 08:03
MPV 10.6 H fL
(7.4-10.4)
Absolute Neuts (auto) 8.4 H 10^3/uL
(1.4-6.5)
Absolute Monos (auto) 0.7 H 10^3/uL
(0.1-0.6)
Neutrophils % 79.4 H %
(42.2-75.2)
Lymphocytes % 12.1 L %
(20.5-51.1)
Glucose 104 H mg/dl
(70-99)
Ur Occult Blood Reflex 1+ A
(Negative)
Urine Bacteria (Reflex) Few A
(Negative)
Urine Albumin (Reflex) 1+ A
(Neg - Trace)
02/08/25 08:02
02/08/25 08:02
Vital Signs
Initial and Last Documented VS:
Initial Vital Signs
Temp Pulse Resp BP Pulse Ox
98.2 F 78 15 115/74 98
02/08/25 07:41 02/08/25 07:41 02/08/25 07:41 02/08/25 07:41 02/08/25 07:41
Last Documented Vital Signs
Temp Pulse Resp BP Pulse Ox
98.2 F 66 18 98/59 97
02/08/25 07:41 02/08/25 12:55 02/08/25 12:55 02/08/25 12:55 02/08/25 12:55
<Whitney Mcclendon PA-C - Last Filed: 02/08/25 13:01>
MDM/Problems Addressed
Differential Diagnosis Includes:
44yoF here with abd pain, n/v, and decreased ileostomy output that began overnight. Hx of Crohn's disease with multiple abdominal surgeries. Currently with permanent ileostomy. Not on medications. VSS. Patient well appearing in no distress. Abdomen
soft, non-distended without signs of peritonitis. Differential diagnosis includes but is not limited to: SBO, Crohn's flare, gastroenteritis, constipation, pancreatitis
Initial ED plan: Check abdominal labs, HCG, and CT abdomen with IV/PO contrast. IV Zofran and fluid bolus for symptoms. She declines analgesics.
<Whitney Mcclendon PA-C - Last Filed: 02/08/25 13:01>
*Pulse Oximetry
SaO2: 96
Oxygen Mode of Delivery: Room air
Patient hypoxic: no
*Critical Care Note
Total Time (30-74mins, 75-104mins- exclusive of procedures): Not Applicable
<Whitney Mcclendon PA-C - Last Filed: 02/08/25 13:01>
Update Note
Update Note:
Labs unremarkable including normal white count, renal function, LFTs, and lipase. CT does not show any evidence of obstruction. Oral contrast seen to the level of the RLQ ileostomy. No other acute findings on imaging to explain pain. She had
some output in her ileostomy since arriving to the ED but she states it is still less than usual. Unclear etiology of symptoms. No indication for hospitalization. She was advised to f/u with her gastroenterolgist and ED return precautions
reviewed. Patient in agreement with plan and she was discharged in stable condition.
ED Attending Note
<Whitney Mcclendon PA-C - Last Filed: 02/08/25 13:01>
-
Portions of this chart may have been created with voice recognition software.� Occasional wrong word or��sound alike� substitutions may have occurred due to the inherent limitations of voice recognition software.
<Amol Coello, DO - Last Filed: 02/08/25 08:36>
ED Attending Note
Patient seen and examined by attending physician: Yes
I performed the substantive portion of visit, reviewed & personally made and approve the management plan that is documented in note by myself or MARCIN.: Yes
ED Attending Note:
I have seen and evaluated the patient with a [id number] encounter. I have spoken to the advance practicer provider and involved in the medical history, the physical exam, medical decision making.
Evaluation and management service: agree unless noted differently below.
Results interpretation: agree unless noted differently below.
Focused HPI: 44-year-old female presenting with generalized abdominal pain, nausea and vomiting. Patient had prior colectomy with ostomy due to her Crohn's disease. Patient states this feels similar to her prior Crohn's flare and 2 prior small
bowel obstruction
Physical exam: Sitting in bed comfortably. Abdomen not distended. Ostomy pouch empty
Medical Decision Making: Given her prior history, will obtain CT. The concern is Crohn's flare versus small bowel obstruction
Discharge Plan
Departure
Patient Disposition: Home (Routine Discharge)
Date of Disposition: 02/08/25
Time of Disposition: 12:48
Patient with high blood pressure during this ER visit?: No
Discharge Problem:
Abdominal pain, Nausea and vomiting
Instructions: Abdominal Pain
Prescriptions:
New
ondansetron 4 mg tablet,disintegrating
4 mg PO Q6H PRN (Reason: nausea and vomiting) Qty: 20 0RF
No Action
fexofenadine 60 mg Tablet
180 mg PO DAILY PRN (Reason: allergies)
omeprazole 40 mg Capsule,Delayed Release(Dr/Ec)
40 mg PO DAILY
cholecalciferol (vitamin D3) [Vitamin D3] 10 mcg (400 unit) Capsule
10 mcg PO DAILY
pj-[id number]-[id number]-Ca carb-vit K 18 mg iron-400 mcg-500 mg Tablet
1 tab PO DAILY
magnesium 200 mg Tablet
200 mg PO HS
acetaminophen [acetaminophen] 325 mg tablet
650 mg PO Q4HPRN PRN (Reason: mild pain) Qty: 1 0RF
ibuprofen 200 mg tablet
400 - 600 mg PO Q6HPRN PRN (Reason: moderate pain) Qty: 1 0RF
oxycodone 5 mg tablet
5 mg PO Q4HPRN PRN (Reason: breakthrough/severe pain) Qty: 15 0RF
Referrals:
Codi Bright MD [Family Provider, Internal Medicine]
Activity Restrictions/Additional Instructions:
Take Zofran as needed for nausea. Drink plenty of fluids and stay hydrated. Take Tylenol as needed for pain.
Please follow-up with your transit proof machine operator and family doctor. Return to the ER with any new or worsening symptoms including severe pain or fevers.
Interventions
Interventions:
*Risk Screen - Suicide Last Done: 02/08/25 07:41
*General Assessment Last Done: 02/08/25 07:53
*Neglect/Abuse Screening Last Done: 02/08/25 07:41
*ED- Fall Risk Assessment Last Done: 02/08/25 07:53
*ED COVID-19 Vaccine History Last Done: 02/08/25 07:53
*ED Influenza Vaccine History Last Done: 02/08/25 07:53
*Nursing Disposition Last Done: 02/08/25 12:55
QW-[id number]-[id number] Assessment Last Done: 02/08/25 07:54
Discharge Date and Time
Discharge Date/Time: 02/08/25 12:56
Print Language: SWEDISH
[2025-02-08 08:20] LABS: HCG, Serum Qualitative Screen Negative
[2025-02-08 08:25] LABS: ALT (SGPT) 21 U/L (0-35); AST (SGOT) 18 U/L (14-36); Albumin 4.2 g/dl (3.5-5.0); Alkaline Phosphatase 64 U/L (38-126); Blood Urea Nitrogen 15 mg/dl (7-17); Calcium 9.1 mg/dl (8.4-10.2); Carbon Dioxide 24 mmol/L (22-30); Chloride 107 mmol/L (98-107); Estimated Creatinine Clearance > 125 ml/min; Glucose 104 mg/dl (70-99); Lipase 193 U/L (23-300); Potassium 4.2 mmol/L (3.5-5.1); Sodium 136 mmol/L (135-145); Total Protein 6.9 g/dl (6.3-8.2); eGFR > 60.00
[2025-02-08] MEDS: OMNIPAQUE 50 ML PO (08:26)
[2025-02-08] MEDS: NSS 1000 IV (08:26)
[2025-02-08] MEDS: ZOFRAN 4 MG IV (08:27)
[2025-02-08 08:32] LABS: Urine Red Blood Cell 0-2 /HPF (0-2)
[2025-02-08 09:10] VITALS: BP 103/68
[2025-02-08 10:04] VITALS: BP 99/64
[2025-02-08] MEDS: TYLENOL 1000 MG PO (10:11)
[2025-02-08 12:55] VITALS: BP 98/59
== END 2025-02-08 12:56 | disposition home or self-care (01) ==
LOC: EMR 07:31
PROVIDERS: Emergency Medicine; EMERGENCY PHYSICIAN Student in an Organized Health Care Education/Training Program; FAMILY PHYSICIAN Internal Medicine
DX: R10.84 Generalized abdominal pain (principal); R11.2 Nausea with vomiting, unspecified; K50.90 Crohn's disease, unspecified, without complications; M32.9 Systemic lupus erythematosus, unspecified; E28.2 Polycystic ovarian syndrome; Z93.2 Ileostomy status; Z90.49 Acquired absence of other specified parts of digestive tract
CPT/HCPCS: 99284; 96374; 96361 ×2; 74177; 80053; 81003; 81015; 83690; 84703; 85025; Q9967